=== PATIENT | female | born 2000 ===

== ENCOUNTER 2024-08-04 22:21 | Inpatient (IN) ==
[2024-08-05] MEDS ORDERED: LIDOCAINE 1% LOCAL 20 ML VIAL INFIL PRN (00:08)
[2024-08-05] MEDS ORDERED: LACTATED RINGER'S 1,000 ML IV PRN (00:08)
[2024-08-05 00:40] LABS: Hematocrit (blood only) 36.5 % (37.0-47.0); Hemoglobin 12.2 g/dl (12.0-16.0); Mean Corpuscular Hemoglobin 29.5 pg (25.0-34.0); Mean Corpuscular Hgb Conc 33.4 g/dL (32.0-36.0); Mean Corpuscular Volume 88.2 fL (80.0-100.0); Mean Platelet Volume 10.7 fL (9.4-12.4); Platelet Count 193 K/uL (130-400); RDW Coefficient of Variation 13.4 % (11.5-14.5); RDW Standard Deviation 42.5 fL (36.4-46.3); Red Blood Count 4.14 M/uL (4.20-5.40); White Blood Count 10.96 K/ul (4.8-10.8)
[2024-08-05] MEDS: OXYTOCIN 30 UNITS/NSS 30 UNITS/500 ML BAG IV PRN (01:20)
[2024-08-05] MEDS: BENZOCAINE 20% SPRY 85 APPLN/85 GM CAN EXT ONE (02:51)
[2024-08-05] MEDS: IBUPROFEN 600 MG TAB PO ONE (02:51)
--- NOTE | 2024-08-05 03:22 | Delivery Summary ---
Vaginal Delivery Summary Date of Service August 05, 2024 Vaginal Delivery Summary Patient progressed to 10 stages dilated 100% effaced +2 station pushed intact perineum with epidural anesthesia delivered with viable with weight and Apgars pending. Head delivered without difficulty quickly followed by shoulders and body. was noted to be vigorous upon delivery and a 1 minute delayed cord clamping was initiated. Cord was then double clamped and cut yudith ined on maternal abdomen. Cord blood obtained and attention turned deliver the placenta was delivered intact three-vessel cord gentle cord traction. Inspection of perineum vagina cervix there is noted to be no lacerations. Both mother and stable in the immediate post delivery timeframe. Needle sponge and instrument counts correct at the completion of the case. No complications noted and blood loss per QBL. [facility] Vaginal Delivery Charge Delivery Type Details: [facility]
[2024-08-05] MEDS ORDERED: HYDROCORTISONE ACETATE 25 MG SUPP PR PRN (03:23)
[2024-08-05] MEDS ORDERED: BENZOCAINE 20% SPRY 85 APPLN/85 GM CAN EXT PRN (03:23)
[2024-08-05] MEDS ORDERED: OXYTOCIN 30 UNITS/NSS 30 UNITS/500 ML BAG IV PRN (03:23)
[2024-08-05] MEDS ORDERED: ACETAMINOPHEN 325 MG TAB PO PRN (03:23)
[2024-08-05] MEDS ORDERED: IBUPROFEN 600 MG TAB PO PRN (03:23)
[2024-08-05] MEDS: DIPHTHER/TETAN/PERTUS Vaccine (Tdap, Adol/Adult) 0.5mL IM ONE (03:37)
[2024-08-05] MEDS: FERROUS SULFATE 325 MG TAB PO SCH (08:46)
[2024-08-05] MEDS: DOCUSATE SODIUM 100 MG CAP PO SCH (08:46)
[2024-08-05] MEDS: PRENATAL VITAMIN 1 TAB PO SCH (08:46)
[2024-08-05 19:27] VITALS: O2SAT 97
[2024-08-05 23:19] VITALS: TEMP 98.1
--- NOTE | 2024-08-06 06:02 | Obstetrical Progress Note ---
Date of Service <Shaniqua Rosales MD - Last Filed: 08/06/24 07:44> August 06, 2024 Assessment & Plan <Shaniqua Rosales MD - Last Filed: 08/06/24 07:44> (1) care and examination: PPD#1 s/p at 39 wga: Stable. Rh+, gbs neg, ri, vitals wnl Continue routine care, ambulation, diet as tolerated Plan for DC today <Delia Corral MD, FACOG - Last Filed: 08/06/24 07:57> (1) care and examination: Subjective <Shaniqua Rosales MD - Last Filed: 08/06/24 07:44> Patient is a 23yo who is PPD#1 following at 39+ weeks. Reports mild beltran, has not needed analgesics Voiding w/o issue Tolerating meals Ambulating normally +passing gas Having appropriate lochia Planning to breastfeed. Constitutional: no fever, no chills or no sweats Respiratory: no dyspnea Cardiovascular: no chest pain, no palpitations or no calf pain Breast: no breast pain Gastrointestinal: no nausea or no vomiting Genitourinary (female): no dysuria Neurologic: no headache(s) no changes in vision, no headaches Physical Exam <Shaniqua Rosales MD - Last Filed: 08/06/24 07:44> General: Alert, oriented. No acute distress. Cardiac: Regular rate and rhythm, no murmurs, rubs, or gallops. Respiratory: Clear to auscultation bilaterally. No increased work of breathing. Symmetrical chest rise. No respiratory distress. Abdomen: Soft, nontender, nondistended. Bowel sounds present. Uterus: Uterine fundus firm, nontender, palpable 1 cm below the umbilicus. Lower extremities: No lower extremity edema or swelling. No deep calf pain. Results & Data <Shaniqua Rosales MD - Last Filed: 08/06/24 07:44> Vital Signs (Past 12 Hours) Vital Signs Temp Pulse Resp BP Pulse Ox O2 Del Method 08/05/24 23:17 36.7 C 78 18 107/64 97 Room Air 08/05/24 19:26 36.8 C 85 18 113/66 97 Room Air Laboratory Results 08/05/24 00:16 Supervising Physician <Delia Corral MD, FACOG - Last Filed: 08/06/24 07:57> Co-Signing Physician Notes Resident Physician Supervision Note: I interviewed and examined the patient. Discussed with Dr. Rosales and agree with findings and plan as documented in the note. Any exceptions or clarifications are listed here: Doing well. No issues today. Desires d/c. instructions reviewed. Documented By: Delia Corral MD, FACOG Resident Activity Tracking <Shaniqua Rosales MD - Last Filed: 08/06/24 07:44> Resident Involvement: Resident Care Provided Care Provided: Adult [facility]
[2024-08-06 07:41] VITALS: BP 111/67; PULSE 74; RESP 16
[2024-08-06] MEDS: FLUoxetine HCL 20 MG CAP PO SCH (11:50)
[2024-08-06] MEDS: lamoTRIgine 25 MG TAB PO SCH (11:50)
[2024-08-06] MEDS ORDERED: bisacodyL 5 MG TABEC PO SCH (20:00)
[2024-08-07] MEDS ORDERED: bisacodyL 10 MG SUPP PR PRN (03:23)
== END 2024-08-06 11:52 | disposition home or self-care (01) | DRG 807 ==
LOC: OPB 22:21 → 4S1 22:21 → 4E2 08-05 03:45